=== PATIENT | female | born 1940 | race Caucasian/White ===

== ENCOUNTER 2018-09-21 16:19 | Emergency (ER) | payer MEDICARE ==
[2018-09-21 16:40] VITALS: BP 119/58
--- NOTE | 2018-09-21 17:22 | UC ---
Minor Trauma HPI - HPI Summary HPI Summary: Ms. Brand slipped and starting to get out of the bathtub at 7:30 this morning , fell over the edge of the tub onto the floor hitting her head. It took her some time but she was able to get herself up and over to the bed. At first she had a pretty significant headache but that has begun to resolve. In the meantime over the last 8 or so hours she has developed upper back pain that has gradually worsened and now extends a little bit around her right side. It is worsened by movement and feels better if she remains perfectly still. - History of Current Complaint Chief Complaint: UCGU Stated Complaint: FREQUENT URINATION Time Seen by Provider: 09/21/18 16:47 Hx Obtained From: Patient Onset/Duration: Sudden Onset Onset Of Pain: Post Accident Severity Initially: Mild Severity Currently: Moderate Pain Intensity: 0 Mechanism Of Injury: Blunt Trauma Aggravating Factor(s): Ambulation, Movement Alleviating Factor(s): Rest Associated Signs And Symptoms: Negative: Loss Of Consciousness - Allergies/Home Medications Allergies/Adverse Reactions: Allergies Allergy/AdvReac Type Severity Reaction Status Date / Time erythromycin base Allergy Hives Verified 09/21/18 16:40 -MYCINS Allergy Hives Uncoded 09/21/18 16:40 Home Medications: Home Medications Acetaminophen TAB* [Tylenol TAB*] PRN 09/21/18 [History] Atorvastatin* [Lipitor 10 MG*] 09/21/18 [History] Linaclotide [Linzess] 290 mcg PO DAILY 09/21/18 [History Confirmed 09/21/18] Metoprolol Succinate XL TAB* [Toprol XL TAB*] 50 mg PO DAILY 09/21/18 [History Confirmed 09/21/18] Pantoprazole TAB * [Protonix TAB*] 40 mg PO DAILY 09/21/18 [History Confirmed ] Promethazine TAB* [Phenergan Tab*] PRN 09/21/18 [History] Venlafaxine CAP (NF) [Effexor CAP (NF)] 75 mg PO DAILY 09/21/18 [History Confirmed 09/21/18] Venlafaxine EXT RELEASE CAP* [Effexor Xr CAP*] 150 mg PO DAILY 09/21/18 [ History Confirmed 09/21/18] clonazePAM TAB(*) [KlonoPIN TAB(*)] 1 mg PO BID 09/21/18 [History Confirmed ] traZODone TAB* [Desyrel TAB*] 50 mg PO DAILY 09/21/18 [History Confirmed ] PMH/Surg Hx/FS Hx/Imm Hx Previously Healthy: Yes Endocrine History: Dyslipidemia Cardiovascular History: Cardiac Disease, Hypertension, Other - There is some question as to whether she is on plavix or why. - Surgical History Surgical History: Yes Surgery Procedure, Year, and Place: HYSTERECTOMY - Social History Alcohol Use: None Substance Use Type: None Smoking Status (MU): Former Smoker Review of Systems All Other Systems Reviewed And Are Negative: Yes Physical Exam - Summary Physical Exam Summary: She was nontoxic in appearance with stable vital signs although she looked to be in pain when she moved. Triage Information Reviewed: Yes Appearance: Well-Appearing Vital Signs: Initial Vital Signs Temp 98.2 F 09/21/18 16:34 Pulse 85 09/21/18 16:34 Resp 16 09/21/18 16:34 BP 119/58 09/21/18 16:34 Pulse Ox 94 09/21/18 16:34 Vital Signs Reviewed: Yes ENT Exam: Normal - small cephalohematoma Neck exam: Normal Neck: Positive: Supple Respiratory Exam: Normal Respiratory: Positive: Chest non-tender Cardiovascular Exam: Normal Abdominal Exam: Normal Abdomen Description: Positive: Nontender, Soft Bowel Sounds: Positive: Present Musculoskeletal Exam: Other - tender right paradorsal area. Neurological Exam: Normal Psychological Exam: Normal Skin Exam: Normal Diagnostics - Radiology CT Brain Radiology Interpretation Completed By: Radiologist Summary of Radiographic Findings: No acute process CT chest Radiology Interpretation Completed By: Radiologist Summary of Radiographic Findings: No acute process CT Thoracic Spine Radiology Interpretation Completed By: Radiologist Summary of Radiographic Findings: No acute process Minor Trauma Course/Dx - Course Course Of Treatment: Ms. Bains improved some with Toradol here. I think she should take a short course of ibuprofen in spite of the fact that she may be on Plavix. This just for of days to prevent generalized aches and pains. Her CTs revealed no evidence for compression fracture etc. - Differential Dx/Diagnosis Provider Diagnosis: Upper back strain, Head injury Discharge - Sign-Out/Discharge Documenting (check all that apply): Patient Departure All imaging exams completed and their final reports reviewed: Yes - Discharge Plan Condition: Stable Disposition: HOME Patient Education Materials: Thoracic Back Strain (ED), Head Injury (ED), Ibuprofen (By mouth) Referrals: No Primary Care Phys,NOPCP [Primary Care Provider] - - Billing Disposition and Condition Condition: STABLE Disposition: Home
--- NOTE | 2018-09-21 17:52 | UC ---
Complaint Female HPI - HPI Summary HPI Summary: Ms. Bains is complaining of frequency and urgency since yesterday. She has no fever or back pain. She has had UTIs many times in the past but not for quite some time. - History Of Current Complaint Chief Complaint: UCGU Stated Complaint: FREQUENT URINATION Time Seen by Provider: 09/21/18 16:47 Hx Obtained From: Patient Onset/Duration: Gradual Onset Severity Initially: Mild Severity Currently: Moderate Pain Intensity: 0 Character: Burning Aggravating Factor(s): Urination - Allergies/Home Medications Allergies/Adverse Reactions: Allergies Allergy/AdvReac Type Severity Reaction Status Date / Time erythromycin base Allergy Hives Verified 09/21/18 16:40 -MYCINS Allergy Hives Uncoded 09/21/18 16:40 Home Medications: Home Medications Acetaminophen TAB* [Tylenol TAB*] PRN 09/21/18 [History] Atorvastatin* [Lipitor 10 MG*] 09/21/18 [History] Linaclotide [Linzess] 290 mcg PO DAILY 09/21/18 [History Confirmed 09/21/18] Metoprolol Succinate XL TAB* [Toprol XL TAB*] 50 mg PO DAILY 09/21/18 [History Confirmed 09/21/18] Pantoprazole TAB * [Protonix TAB*] 40 mg PO DAILY 09/21/18 [History Confirmed ] Promethazine TAB* [Phenergan Tab*] PRN 09/21/18 [History] Venlafaxine CAP (NF) [Effexor CAP (NF)] 75 mg PO DAILY 09/21/18 [History Confirmed 09/21/18] Venlafaxine EXT RELEASE CAP* [Effexor Xr CAP*] 150 mg PO DAILY 09/21/18 [ History Confirmed 09/21/18] clonazePAM TAB(*) [KlonoPIN TAB(*)] 1 mg PO BID 09/21/18 [History Confirmed ] traZODone TAB* [Desyrel TAB*] 50 mg PO DAILY 09/21/18 [History Confirmed ] PMH/Surg Hx/FS Hx/Imm Hx Previously Healthy: Yes Endocrine History: Dyslipidemia Cardiovascular History: Hypertension - Surgical History Surgical History: Yes Surgery Procedure, Year, and Place: HYSTERECTOMY - Social History Alcohol Use: None Substance Use Type: None Smoking Status (MU): Former Smoker Review of Systems All Other Systems Reviewed And Are Negative: Yes Physical Exam Triage Information Reviewed: Yes Appearance: Well-Appearing Vital Signs: Initial Vital Signs Temp 98.2 F 09/21/18 16:34 Pulse 85 09/21/18 16:34 Resp 16 09/21/18 16:34 BP 119/58 09/21/18 16:34 Pulse Ox 94 09/21/18 16:34 Vital Signs Reviewed: Yes ENT Exam: Normal - small cephalohematoma Respiratory Exam: Normal Abdominal Exam: Normal Abdomen Description: Positive: Nontender, Soft Bowel Sounds: Positive: Present Psychological Exam: Normal Skin Exam: Normal Diagnostics - Radiology CT Brain Radiology Interpretation Completed By: ED Physician Complaint Female Dx - Course Course Of Treatment: Ms. Bains has urgency and frequency. She does have leukocyte esterase in her urine dip and I will treat her for UTI at this time. - Differential Dx/Diagnosis Provider Diagnosis: UTI (urinary tract infection) Discharge - Sign-Out/Discharge Documenting (check all that apply): Patient Departure All imaging exams completed and their final reports reviewed: No Studies - Discharge Plan Condition: Stable Disposition: HOME Prescriptions: Ibuprofen TAB* [Motrin TAB* 400 MG] 400 mg PO Q6H PRN #20 tab PRN Reason: Pain Patient Education Materials: Urinary Tract Infection in Women (ED) Referrals: [facility] Ent Provider,NIKKI Rutledge [[facility], [facility]] - - Billing Disposition and Condition Condition: STABLE Disposition: Home
== END 2018-09-21 18:07 | disposition home or self-care (01) ==
LOC: UCEAST 16:19
DX: N39.0 Urinary tract infection, site not specified (principal); E78.5 Hyperlipidemia, unspecified; I10 Essential (primary) hypertension; Z87.891 Personal history of nicotine dependence
CPT/HCPCS: 81003; 87077; 87086; 87186; 99202; G0463

== ENCOUNTER 2019-09-17 18:54 | Inpatient (IN) ==
[2019-09-17] MEDS ORDERED: NS 0.9% 1000 ml BAG 1,000 ML IV ONE (18:56)
[2019-09-17] MEDS ORDERED: Iodixanol (CONTRAST) 320 MG/ML 100 ML SDV IV ONE (19:10)
[2019-09-17] MEDS ORDERED: Alteplase (100 mg Vial) 100 mg VIAL IV ONE ×2 (19:24)
[2019-09-17 19:36] LABS: ABS Basophils 0.1 10^3/ul (0-0.2); ABS Eosinophils 0.2 10^3/ul (0-0.6); ABS Lymphocytes 1.9 10^3/ul (1.0-4.8); ABS Monocytes 0.5 10^3/ul (0-0.8); Eosinophil % 2.9 %; Hematocrit 39 % (35-47); Hemoglobin 13.4 g/dL (12.0-16.0); Lymphocyte % 31.7 %; Mean Corpuscular HGB Conc 35 g/dL (31-36); Mean Corpuscular Hemoglobin 32 pg (27-31); Mean Corpuscular Volume 91 fL (80-97); Mean Platelet Volume 7.2 fL (7.4-10.4); Platelet Count 215 10^3/uL (150-450); Red Blood Count 4.24 10^6 /uL (3.70-4.87); Red Cell Distribution Width 14 % (10-15); White Blood Count 6.1 10^3/uL (3.5-10.8)
[2019-09-17 19:48] LABS: Activated Partial Thrombo Time 32.2 seconds (26.0-38.0); INR 1.19 (0.82-1.09)
[2019-09-17 19:53] LABS: Albumin 3.9 g/dL (3.2-5.2); Albumin/Globulin Ratio 1.4 (1-3); Calcium 8.5 mg/dL (8.6-10.3); Globulin 2.8 g/dL (2-4); HDL Cholesterol 44.6 mg/dL; Potassium 3.6 mmol/L (3.5-5.0); Total Bilirubin 0.3 mg/dL (0.2-1.0); Total Protein 6.7 g/dL (6.4-8.9)
[2019-09-17 19:54] LABS: Troponin I 0.01 ng/mL (<0.03)
[2019-09-17 20:11] LABS: BUN/Creatinine Ratio 15.1 (8-20); EGFR African American 70.6 (>60); EGFR Non-African American 58.3 (>60)
[2019-09-18 05:13] LABS: ABS Eosinophils 0.2 10^3/ul (0-0.6); ABS Lymphocytes 1.8 10^3/ul (1.0-4.8); ABS Monocytes 0.8 10^3/ul (0-0.8); Eosinophil % 2.9 %; Hematocrit 39 % (35-47); Hemoglobin 13.2 g/dL (12.0-16.0); Lymphocyte % 23.9 %; Mean Corpuscular HGB Conc 34 g/dL (31-36); Mean Corpuscular Hemoglobin 32 pg (27-31); Mean Corpuscular Volume 92 fL (80-97); Mean Platelet Volume 7.1 fL (7.4-10.4); Platelet Count 208 10^3/uL (150-450); Red Blood Count 4.16 10^6 /uL (3.70-4.87); Red Cell Distribution Width 14 % (10-15); White Blood Count 7.7 10^3/uL (3.5-10.8)
[2019-09-18 05:21] LABS: INR 1.17 (0.82-1.09)
[2019-09-18 05:27] LABS: BUN/Creatinine Ratio 11.7 (8-20); EGFR African American 69.7 (>60); EGFR Non-African American 57.6 (>60); HDL Cholesterol 44.3 mg/dL; Potassium 4.2 mmol/L (3.5-5.0)
[2019-09-18 07:05] LABS: Urine Appearance Clear; Urine Bilirubin Negative (Negative); Urine Blood 1+ (Negative); Urine Color Straw; Urine Glucose Negative (Negative); Urine Ketones Negative (Negative); Urine Nitrite Negative (Negative); Urine Protein Negative (Negative); Urine Specific Gravity 1.025 (1.010-1.030); Urine Urobilinogen Negative (Negative)
[2019-09-18 07:08] LABS: Urine Bacteria Absent (Absent); Urine Red Blood Cell Trace(0-2/hpf) (Absent); Urine White Blood Cell Trace(0-5/hpf) (Absent)
[2019-09-18] MEDS ORDERED: Lactated Ringers 1000 ml BAG 1,000 ML IV SCH (08:00)
[2019-09-18] MEDS ORDERED: Docusate LIQ 100 MG/10 ML UDC PO SCH (09:00)
[2019-09-18] MEDS ORDERED: VENLAFAXINE 150 MG PO SCH (09:00)
[2019-09-18 11:08] LABS: TSH (Thyroid Stimulating Horm) 4.02 mcIU/mL (0.34-5.60)
[2019-09-18] MEDS ORDERED: Senna TAB 8.6 mg TAB PO PRN (12:12)
[2019-09-19] MEDS ORDERED: diPHENhydraMINE 25 mg TAB PO ONE (01:24)
[2019-09-19] MEDS ORDERED: diPHENhydraMINE 25 mg TAB ONE (01:29)
[2019-09-19] MEDS: diPHENhydraMINE 25 mg TAB PO PRN ×3 (07:25→20:57)
[2019-09-19] MEDS: Venlafaxine XR 75 mg PO SCH (09:04)
[2019-09-20] MEDS: diPHENhydraMINE 25 mg TAB PO PRN ×2 (06:57→14:29)
[2019-09-20] MEDS: Venlafaxine XR 75 mg PO SCH (09:44)
[2019-09-20 11:59] VITALS: BP 112/58
== END 2019-09-20 16:00 | disposition home health service (06) | DRG 92 ==
LOC: ED 18:54 → ICU 21:19 → MEDTELE 09-19 11:33
PROVIDERS: ADMIT Nurse Practitioner Family; ATTEND Internal Medicine

== ENCOUNTER 2020-11-08 14:43 | Inpatient (IN) ==
[2020-11-08] MEDS ORDERED: NS 0.9% 1000 ml BAG 1,000 ML IV ONE (15:04)
[2020-11-08 15:14] LABS: ABS Basophils 0.1 10^3/ul (0-0.2); ABS Eosinophils 0.1 10^3/ul (0-0.6); ABS Lymphocytes 2.1 10^3/ul (1.0-4.8); ABS Monocytes 0.6 10^3/ul (0-0.8); Eosinophil % 1.8 %; Hematocrit 40 % (35-47); Hemoglobin 13.7 g/dL (12.0-16.0); Lymphocyte % 30.3 %; Mean Corpuscular HGB Conc 34 g/dL (31-36); Mean Corpuscular Hemoglobin 32 pg (27-31); Mean Corpuscular Volume 92 fL (80-97); Mean Platelet Volume 7.2 fL (7.4-10.4); Platelet Count 236 10^3/uL (150-450); Red Blood Count 4.33 10^6 /uL (3.70-4.87); Red Cell Distribution Width 14 % (10-15); White Blood Count 6.8 10^3/uL (3.5-10.8)
[2020-11-08] MEDS ORDERED: Iodixanol (CONTRAST) 320 MG/ML 100 ML SDV IV ONE (15:17)
[2020-11-08 15:31] LABS: Albumin 4.4 g/dL (3.2-5.2); Albumin/Globulin Ratio 1.4 (1-3); Calcium 9.8 mg/dL (8.6-10.3); EGFR African American 56.2 (>60); EGFR Non-African American 46.4 (>60); Globulin 3.1 g/dL (2-4); HDL Cholesterol 57.5 mg/dL; Potassium 4.4 mmol/L (3.5-5.0); Total Bilirubin 0.5 mg/dL (0.2-1.0); Total Protein 7.5 g/dL (6.4-8.9)
[2020-11-08 15:32] LABS: Troponin I 0.01 ng/mL (<0.03)
[2020-11-08 15:51] LABS: Activated Partial Thrombo Time 33.4 seconds (26.0-38.0); INR 1.12 (0.86-1.15)
[2020-11-08] MEDS ORDERED: Alteplase (100 mg Vial) 100 mg VIAL IV ONE ×2 (15:53)
[2020-11-08] MEDS ORDERED: niCARdipine 0.1MG/ML IVPREMIX 20 MG/200 ML BAG IV SCH (18:00)
[2020-11-08] MEDS: Pantoprazole VIAL 40 MG VIAL IV SCH (18:21)
[2020-11-08] MEDS ORDERED: diPHENhydraMINE 25 mg TAB PO ONE (22:56)
[2020-11-09] MEDS: diPHENhydraMINE 25 mg TAB PO PRN ×5 (03:29→20:05)
[2020-11-09 03:48] LABS: Hematocrit 41 % (35-47); Hemoglobin 13.9 g/dL (12.0-16.0); Mean Corpuscular HGB Conc 34 g/dL (31-36); Mean Corpuscular Hemoglobin 31 pg (27-31); Mean Corpuscular Volume 93 fL (80-97); Mean Platelet Volume 7.1 fL (7.4-10.4); Platelet Count 222 10^3/uL (150-450); Red Blood Count 4.43 10^6 /uL (3.70-4.87); Red Cell Distribution Width 14 % (10-15); White Blood Count 8.2 10^3/uL (3.5-10.8)
[2020-11-09 04:05] LABS: Albumin/Globulin Ratio 1.3 (1-3); EGFR African American 66.2 (>60); EGFR Non-African American 54.7 (>60); HDL Cholesterol 53.7 mg/dL; Magnesium 1.9 mg/dL (1.9-2.7); Phosphorus 3.5 mg/dL (2.5-5.0); Potassium 3.7 mmol/L (3.5-5.0); Total Bilirubin 0.6 mg/dL (0.2-1.0)
[2020-11-09] MEDS: Pantoprazole VIAL 40 MG VIAL IV SCH (09:47)
[2020-11-09] MEDS: Venlafaxine XR 75 mg PO SCH (09:47)
[2020-11-09] MEDS ORDERED: VENLAFAXINE 150 MG PO SCH (21:00)
[2020-11-09] MEDS ORDERED: diPHENhydraMINE 25 mg TAB PO ONE (22:10)
[2020-11-10] MEDS: diPHENhydraMINE 25 mg TAB PO PRN ×4 (04:42→21:02)
[2020-11-10] MEDS: Venlafaxine XR 75 mg PO SCH (08:01)
[2020-11-10] MEDS: Pantoprazole VIAL 40 MG VIAL IV SCH (08:01)
[2020-11-10 08:38] LABS: Hematocrit 38 % (35-47); Hemoglobin 13.2 g/dL (12.0-16.0); Mean Corpuscular HGB Conc 35 g/dL (31-36); Mean Corpuscular Hemoglobin 32 pg (27-31); Mean Corpuscular Volume 92 fL (80-97); Mean Platelet Volume 7.5 fL (7.4-10.4); Platelet Count 223 10^3/uL (150-450); Red Blood Count 4.18 10^6 /uL (3.70-4.87); Red Cell Distribution Width 14 % (10-15); White Blood Count 7.3 10^3/uL (3.5-10.8)
[2020-11-10 09:02] LABS: Calcium 8.6 mg/dL (8.6-10.3); EGFR African American 66.2 (>60); EGFR Non-African American 54.7 (>60); Magnesium 1.8 mg/dL (1.9-2.7); Phosphorus 3.5 mg/dL (2.5-5.0); Potassium 3.9 mmol/L (3.5-5.0)
[2020-11-10] MEDS: Aspirin EC 81 mg TAB.EC (enteric coated) PO SCH (11:15)
[2020-11-11] MEDS: Venlafaxine XR 75 mg PO SCH (08:50)
[2020-11-11] MEDS: Aspirin EC 81 mg TAB.EC (enteric coated) PO SCH (08:50)
[2020-11-11] MEDS: Pantoprazole VIAL 40 MG VIAL IV SCH (08:51)
[2020-11-11] MEDS ORDERED: CMCS:diPHENhydraMINE CREAM 2%(NF) 28 gm TUBE TOPICAL SCH (17:00)
[2020-11-11] MEDS: diPHENhydraMINE 25 mg TAB PO PRN (17:03)
[2020-11-11 17:41] VITALS: BP 113/54
== END 2020-11-11 18:39 | disposition home or self-care (01) | DRG 62 ==
LOC: ED 14:43 → ICU 15:04 → SUATTDRO 17:32 → MEDTELE 11-10 12:02
PROVIDERS: ADMIT Internal Medicine; ATTEND Internal Medicine

== ENCOUNTER 2020-11-22 08:45 | Observation (INO) ==
[2020-11-22] MEDS ORDERED: NS 0.9% 1000 ml BAG 1,000 ML IV ONE (08:51)
[2020-11-22 09:03] LABS: ABS Basophils 0.1 10^3/ul (0-0.2); ABS Eosinophils 0.3 10^3/ul (0-0.6); ABS Lymphocytes 2.2 10^3/ul (1.0-4.8); ABS Monocytes 0.6 10^3/ul (0-0.8); ABS Neutrophils 3.4 10^3/ul (1.5-7.7); Eosinophil % 4.2 %; Hematocrit 38 % (35-47); Hemoglobin 12.8 g/dL (12.0-16.0); Mean Corpuscular HGB Conc 34 g/dL (31-36); Mean Corpuscular Hemoglobin 31 pg (27-31); Mean Corpuscular Volume 93 fL (80-97); Mean Platelet Volume 7.4 fL (7.4-10.4); Platelet Count 269 10^3/uL (150-450); Red Blood Count 4.11 10^6 /uL (3.70-4.87); Red Cell Distribution Width 14 % (10-15); White Blood Count 6.6 10^3/uL (3.5-10.8)
[2020-11-22] MEDS ORDERED: Iodixanol (CONTRAST) 320 MG/ML 100 ML SDV IV ONE (09:12)
[2020-11-22 09:16] LABS: INR 1.12 (0.86-1.15)
[2020-11-22 09:18] LABS: Albumin 4.1 g/dL (3.2-5.2); Albumin/Globulin Ratio 1.3 (1-3); Calcium 9.5 mg/dL (8.6-10.3); EGFR African American 55.1 (>60); EGFR Non-African American 45.5 (>60); Globulin 3.2 g/dL (2-4); HDL Cholesterol 53.7 mg/dL; Total Bilirubin 0.3 mg/dL (0.2-1.0); Total Protein 7.3 g/dL (6.4-8.9)
[2020-11-22 09:20] LABS: Troponin I 0.01 ng/mL (<0.03)
[2020-11-22] MEDS ORDERED: Al Hydrox/Mg Hydrox/Simet LIQ 30 ML UDC PO PRN (14:19)
[2020-11-22] MEDS ORDERED: NS 0.9% 1000 ml BAG 1,000 ML IV SCH (14:30)
[2020-11-22] MEDS ORDERED: Senna TAB 8.6 mg TAB PO PRN (14:42)
[2020-11-22] MEDS: Enoxaparin 40 MG/0.4 ML SYR SUBCUT SCH (17:25)
[2020-11-23] MEDS ORDERED: Cholecalciferol (VIT D3) 1,000 unit TAB PO SCH (09:00)
[2020-11-23] MEDS ORDERED: Aspirin EC 81 mg TAB.EC (enteric coated) PO SCH (09:00)
[2020-11-23] MEDS ORDERED: Venlafaxine XR 75 mg PO SCH (09:00)
[2020-11-23] MEDS: Enoxaparin 40 MG/0.4 ML SYR SUBCUT SCH (14:30)
[2020-11-23 15:25] VITALS: BP 125/78
== END 2020-11-23 16:10 | disposition home or self-care (01) ==
LOC: MEDTELE 08:45 → ED 08:45 → MEDTELE 15:46
PROVIDERS: ADMIT Internal Medicine; ATTEND Internal Medicine